=== PATIENT | female | born 1980 | race Caucasian/White ===

== ENCOUNTER 2017-07-29 04:25 | Emergency (ER) | payer MEDICAID, OTHER ==
[2017-07-29 05:23] LABS: APPEARANCE,URINE TURBID; BILIRUBIN,URINE NEGATIVE (NEGATIVE); GLUCOSE, URINE 50 mg/dL (NEGATIVE); KETONES,URINE NEGATIVE (NEGATIVE); LEUKOCYTE ESTERASE,URINE MODERATE (NEGATIVE); NITRITE,URINE NEGATIVE (NEGATIVE); PROTEIN,URINE 100 mg/dL (NEGATIVE); URINE SPECIFIC GRAVITY 1.019; UROBILINOGEN,URINE NEGATIVE mg/dL (<2.0)
[2017-07-29 05:27] LABS: COLOR,URINE RED
[2017-07-29] MEDS ORDERED: CEFTRIAXONE INJ 1000 MG VIAL IV ONE (05:59)
[2017-07-29] MEDS ORDERED: NORMAL SALINE 1000 ML 1,000 ML IV ONE (06:00)
[2017-07-29] MEDS ORDERED: PHENAZOPYRIDINE HCL 200 MG TABLET PO ONE (06:01)
--- NOTE | 2017-07-29 06:01 | ER Document Report ---
ED GI/ - General Chief Complaint: Urinary Problem Stated Complaint: URINARY PAIN Time Seen by Provider: 07/29/17 05:16 Notes: 37-year-old female to the emergency department with chief complaint of severe discomfort with urination. Feels like she is having a baby. Burning. Cannot seem to urinate. Radiating to both flanks. No fever. No other symptoms. Urine looks like it has blood clots in it as well. TRAVEL OUTSIDE OF THE [place] IN LAST 30 DAYS: No - HPI Patient complains to provider of: Dysuria, Flank pain, Hematuria - Related Data Allergies/Adverse Reactions: No Known Allergies Allergy (Unverified 09/30/10 08:14) Past Medical History - General Information source: Patient - Social History Smoking Status: Unknown if Ever Smoked Cigarette use (# per day): No Frequency of alcohol use: None Drug Abuse: None Lives with: Spouse/Significant other Family History: Reviewed & Not Pertinent Patient has suicidal ideation: No Patient has homicidal ideation: No - Past Medical History Cardiac Medical History: Pulmonary Medical History: Neurological Medical History: Renal/ Medical History: Denies: Hx Peritoneal Dialysis GI Medical History: Musculoskeltal Medical History: Infectious Medical History: Past Surgical History: Review of Systems - Review of Systems Constitutional: No symptoms reported EENT: No symptoms reported Cardiovascular: No symptoms reported Respiratory: No symptoms reported Gastrointestinal: No symptoms reported Genitourinary: Burning, Dysuria, Frequency, Flank pain, Hematuria, Pain, Urgency , Retention Female Genitourinary: No symptoms reported Musculoskeletal: No symptoms reported Skin: No symptoms reported Hematologic/Lymphatic: No symptoms reported Neurological/Psychological: No symptoms reported Physical Exam - Vital signs Interpretation: Normal - General General appearance: Appears well, Alert - HEENT Head: Normocephalic, Atraumatic Eyes: Normal Pupils: PERRL - Respiratory Respiratory status: No respiratory distress Chest status: Nontender Breath sounds: Normal Chest palpation: Normal - Cardiovascular Rhythm: Regular Heart sounds: Normal auscultation Murmur: No - Abdominal Inspection: Normal Distension: No distension Bowel sounds: Normal Tenderness: Tender, Other - Mild tenderness suprapubically Organomegaly: No organomegaly - Back Back: Normal, Nontender - Extremities General upper extremity: Normal inspection, Nontender, Normal color, Normal ROM , Normal temperature General lower extremity: Normal inspection, Nontender, Normal color, Normal ROM , Normal temperature, Normal weight bearing. No: Rogelio's sign - Neurological Neuro grossly intact: Yes Cognition: Normal Orientation: AAOx4 [place] Coma Scale Eye Opening: Spontaneous Karmen Coma Scale Verbal: Oriented [place] Coma Scale Motor: Obeys Commands [place] Coma Scale Total: 15 Speech: Normal Motor strength normal: LUE, RUE, LLE, RLE Sensory: Normal Course - Re-evaluation Re-evalutation: 07/29/17 07:56 Patient feeling little bit better but still having some pain. Toradol and fentanyl and antibiotics and IV fluids given. CT scan shows some nonobstructing calculi in the kidneys but no evidence of significant obstruction. At this time more than likely this represents a hemorrhagic cystitis. Will continue with IV antibiotics while here in the ER in [place] with oral antibiotics and pain meds as well as Pyridium. Initial dose of Pyridium given in the ED. - Laboratory Result Diagrams: 07/29/17 06:50 07/29/17 06:50 Laboratory results interpreted by me: 07/29/17 07/29/17 04:38 06:50 RDW 14.1 H Urine Protein 100 H Urine Glucose (UA) 50 H Urine Blood LARGE H Ur Leukocyte Esterase MODERATE H Discharge - Discharge Clinical Impression: Hemorrhagic cystitis Condition: Good Disposition: HOME, SELF-CARE Instructions: Urinary Tract Infection ([facility]) Additional Instructions: It appears that you have an infection of the bladder. Sometimes infections like this can lead to bleeding of the bladder hidalgo. This is called hemorrhagic cystitis. These blood clots can sometimes cause obstructions. In the event that you are unable to void, worsening pain or other symptoms, inability to keep medications down due to nausea, uncontrolled vomiting, severe back pain or other issues please return immediately. Please follow-up with your regular doctor. Take all medications as prescribed. Prescriptions: Hydrocodone/Acetaminophen [[place] 5-325 mg Tablet] 1 tab PO TID PRN 2 Days #6 tablet PRN Reason: For Pain Scale 2-3 Phenazopyridine HCl [Pyridium 100 Mg Tablet] 100 mg PO BID 3 Days #6 tablet Sulfamethoxazole/Trimethoprim [Bactrim Ds Tablet] 1 each PO BID 7 Days #14 tablet Referrals: GISSEL SALINAS [Primary Care Provider] - 07/30/17 8:00 am JODY GANDHI DO [[facility]LLER] - Follow up as needed
[2017-07-29] MEDS ORDERED: KETOROLAC TROMETHAMINE INJ/PF 30 MG/1 ML SDV IV ONE (06:53)
[2017-07-29] MEDS ORDERED: FENTANYL CITRATE INJ/PF 100 MCG/2 ML AMPUL IV PRN (06:53)
[2017-07-29 07:04] LABS: ABSOLUTE EOSINOPHILS # (AUTO) 0.1 10^3/uL (0.0-0.6); ABSOLUTE LYMPHOCYTES (AUTO) 1.4 10^3/uL (0.5-4.7); ABSOLUTE MONOCYTES (AUTO) 0.4 10^3/uL (0.1-1.4); ABSOLUTE NEUT (AUTO) 6.6 10^3/uL (1.7-8.2); BASOPHILS % (AUTO) 0.5 % (0-2); EOSINOPHILS % (AUTO) 0.7 % (0-6); HEMATOCRIT 37.2 % (36.0-47.0); HEMOGLOBIN 12.9 g/dL (12.0-15.5); LYMPHOCYTES % (AUTO) 16.4 % (13-45); MEAN CORPUSCULAR HEMOGLOBIN 29.1 pg (27.0-33.4); MEAN CORPUSCULAR HGB CONC 34.6 g/dL (32.0-36.0); MEAN CORPUSCULAR VOLUME 84 fl (80-97); MONOCYTES % (AUTO) 4.7 % (3-13); PLATELET COUNT 178 10^3/uL (150-450); RED BLOOD COUNT 4.43 10^6/uL (3.72-5.28); RED CELL DISTRIBUTION WIDTH 14.1 % (11.5-14.0); SEGMENTED NEUTROPHILS % (AUTO) 77.7 % (42-78); TOTAL CELLS COUNTED % (AUTO) 100 %; WHITE BLOOD COUNT 8.5 10^3/uL (4.0-10.5)
[2017-07-29 07:27] LABS: ALANINE AMINOTRANSFERASE 25 U/L (9-52); ALKALINE PHOSPHATASE 46 U/L (38-126); ANION GAP 8 (5-19); ASPARTATE AMINO TRANSFERASE 22 U/L (14-36); BILIRUBIN,DIRECT 0.2 mg/dL (0.0-0.4); BILIRUBIN,TOTAL 0.5 mg/dL (0.2-1.3); BLOOD UREA NITROGEN 8 mg/dL (7-20); CALCIUM 9.7 mg/dL (8.4-10.2); CARBON DIOXIDE 30 mmol/L (22-30); CHLORIDE 104 mmol/L (98-107); GLUCOSE 86 mg/dL (75-110); POTASSIUM 4.2 mmol/L (3.6-5.0); TOTAL PROTEIN 6.5 g/dL (6.3-8.2)
--- NOTE | 2017-07-29 07:33 | RADIOLOGY REPORT (SQ) ---
EXAM DESCRIPTION: CT ABDOMEN AND PELVIS WITHOUT CONTRAST CLINICAL HISTORY: Bilateral lower abdominal pain. Hematuria. COMPARISON: None Available. TECHNIQUE: CT of the abdomen and pelvis without IV contrast. Evaluation of the solid organs and vasculature is suboptimal due to lack of IV contrast. DLP: 257.52 mGy-cm FINDINGS: Lung Bases: The visualized lung bases are clear. Bones: No destructive bone lesions identified. Abdomen: Liver: The liver has normal size and density. Gallbladder: No calcified gallstones. Spleen, Pancreas, and Adrenal Glands: The spleen, pancreas, and adrenal glands are unremarkable. Kidneys: Punctate bilateral nonobstructing renal calculi. No hydronephrosis. No obstructing ureteral calculi. Vasculature: The aorta and IVC have normal caliber and position. Stomach: The stomach and duodenum have normal course. Other: No free intraperitoneal air. No free fluid or lymphadenopathy. Pelvis: Bladder: Urinary bladder is unremarkable. Bowel: Possible cecal diverticulum without pericolic fat stranding. Appendix: Normal appendix. Pelvis: Uterus is not enlarged. IMPRESSION: 1. No acute inflammatory or obstructive process identified. 2. Cecal diverticula without evidence of acute diverticulitis. 3. Punctate nonobstructing bilateral renal calculi. This exam was performed according to our departmental dose-optimization program, which includes automated exposure control, adjustment of the mA and/or kV according to patient size and/or use of iterative reconstruction technique.
[2017-07-29] MEDS ORDERED: HYDROCODONE/ACETAMINOPHEN 5-325 MG TABLET PO ONE (09:27)
[2017-07-29 09:38] VITALS: BP 104/49
== END 2017-07-29 09:38 | disposition home or self-care (01) ==
LOC: ER 04:25
DX: N30.91 Cystitis, unspecified with hematuria (principal); R10.9 Unspecified abdominal pain
CPT/HCPCS: 99284; 96375; 96365; 36415; 87086; 85025; 87088; 80053; 81001; 87186; 76380; J3010; J1885; J3490; J0696; J7030

== ENCOUNTER 2017-07-30 15:47 | Emergency (ER) | payer OTHER ==
[2017-07-30] MEDS ORDERED: ONDANSETRON 4 MG TAB.RAPDIS PO ONE (16:26)
[2017-07-30] MEDS ORDERED: DIPHENHYDRAMINE HCL 25 MG CAPSULE PO ONE (16:26)
--- NOTE | 2017-07-30 16:28 | ER Document Report ---
ED Medical Screen (RME) - General Chief Complaint: Headache Stated Complaint: HEADACHE, EYE SWELLING, VOMITING Time Seen by Provider: 07/30/17 16:22 Notes: 37-year-old female patient was seen here yesterday with urinary tract infection , TNTC RBCs and WBCs. Culture preliminary is gram-negative rods. She was started on sulfa antibiotic. She woke up today with nausea vomiting, headache, and her right upper eyelid swollen and red. Also some dizziness. I have greeted and performed a rapid initial assessment of this patient. A comprehensive ED assessment and evaluation of the patient, analysis of test results and completion of the medical decision making process will be conducted by additional ED providers. TRAVEL OUTSIDE OF THE [place] IN LAST 30 DAYS: No - Related Data Allergies/Adverse Reactions: No Known Allergies Allergy (Verified 07/30/17 16:22) Past Medical History - Social History Chew tobacco use (# tins/day): No Frequency of alcohol use: None Drug Abuse: None - Past Medical History Cardiac Medical History: Pulmonary Medical History: Neurological Medical History: Renal/ Medical History: Denies: Hx Peritoneal Dialysis GI Medical History: Musculoskeltal Medical History: Infectious Medical History: Past Surgical History: Physical Exam - Vital signs Vitals: Temp Pulse Resp BP Pulse Ox 98.8 F 93 18 106/68 95 07/30/17 16:00 07/30/17 16:00 07/30/17 16:00 07/30/17 16:00 07/30/17 16:00 Course - Vital Signs Vital signs: Temp Pulse Resp BP Pulse Ox 98.8 F 93 18 106/68 95 07/30/17 16:00 07/30/17 16:00 07/30/17 16:00 07/30/17 16:00 07/30/17 16:00
[2017-07-30 16:49] LABS: APPEARANCE,URINE CLEAR; BILIRUBIN,URINE NEGATIVE (NEGATIVE); GLUCOSE, URINE NEGATIVE (NEGATIVE); KETONES,URINE TRACE mg/dL (NEGATIVE); LEUKOCYTE ESTERASE,URINE NEGATIVE (NEGATIVE); NITRITE,URINE POSITIVE (NEGATIVE); PROTEIN,URINE NEGATIVE (NEGATIVE); URINE SPECIFIC GRAVITY 1.011
[2017-07-30 16:50] LABS: COLOR,URINE DARK YELLOW
[2017-07-30] MEDS ORDERED: METHYLPREDNISOLONE INJ 125 MG/2 ML SDV IV ONE (17:10)
[2017-07-30] MEDS ORDERED: NORMAL SALINE 1000 ML 1,000 ML IV ONE (17:10)
[2017-07-30] MEDS ORDERED: FAMOTIDINE INJ/PF 20 MG/2 ML SDV IV ONE (17:10)
[2017-07-30] MEDS ORDERED: CEFTRIAXONE 1 GM/D5W RTU 1 GM/50 ML RTUPB IV ONE (17:10)
[2017-07-30] MEDS ORDERED: METOCLOPRAMIDE HCL INJ/PF 10 MG/2 ML SDV IV ONE (17:10)
[2017-07-30] MEDS ORDERED: CEFTRIAXONE INJ 1000 MG VIAL ONE (17:16)
[2017-07-30] MEDS ORDERED: CEFTRIAXONE SODIUM 1,000 MG in DEXTROSE 5%-WATER 50 ML IV ONE (18:00)
[2017-07-30] MEDS ORDERED: CEFTRIAXONE INJ 1000 MG VIAL IV ONE (18:00)
--- NOTE | 2017-07-30 18:25 | ER Document Report ---
ED General - General Chief Complaint: Headache Stated Complaint: HEADACHE, EYE SWELLING, VOMITING Time Seen by Provider: 07/30/17 16:22 Mode of Arrival: Ambulatory Information source: Patient Notes: 37-year-old female presents with multiple complaints. Patient notes that she has a history of migraine headaches has been having a migraine for the past 2 days. She also notes that she was recently diagnosed with a UTI, was placed on Bactrim, she notes that in the past she has taken Bactrim and had an allergic reaction to it including swelling of her eyelid. Patient notes she took 1 dose of the Bactrim today and her right eyelid became swollen itchy TRAVEL OUTSIDE OF THE [place] IN LAST 30 DAYS: No - HPI Onset: Just prior to arrival Onset/Duration: Sudden Quality of pain: Achy Severity: Mild Pain Level: 1 Associated symptoms: Headache, Nausea, Vomiting, Other Exacerbated by: Other - bactrim Relieved by: Denies Similar symptoms previously: Yes Recently seen / treated by doctor: Yes - Related Data Allergies/Adverse Reactions: Sulfa (Sulfonamide Antibiotics) Allergy (Verified 07/31/17 12:05) Past Medical History - Social History Smoking Status: Never Smoker Cigarette use (# per day): No Chew tobacco use (# tins/day): No Smoking Education Provided: No Frequency of alcohol use: None Drug Abuse: None Family History: Reviewed & Not Pertinent Patient has suicidal ideation: No Patient has homicidal ideation: No - Past Medical History Cardiac Medical History: Pulmonary Medical History: Neurological Medical History: Reports: Hx Migraine Renal/ Medical History: Denies: Hx Peritoneal Dialysis GI Medical History: Musculoskeltal Medical History: Infectious Medical History: Past Surgical History: Reports: Hx Abdominal Surgery - umbilical hernias x2, Hx Breast Surgery - implant and explant, Hx Orthopedic Surgery - rhinoplasty Review of Systems - Review of Systems Notes: REVIEW OF SYSTEMS: CONSTITUTIONAL : Denies fever, chills, or sweats. Denies recent illness. EENT: Eyelid swelling CARDIOVASCULAR: Denies chest pain. Denies palpitations or racing or irregular heart beat. Denies ankle edema. RESPIRATORY: Denies cough, cold, or chest congestion. Denies shortness of breath, difficulty breathing, or wheezing. GASTROINTESTINAL: Admits to nausea vomiting GENITOURINARY: Admits to burning on urination FEMALE GENITOURINARY: Denies vaginal bleeding, heavy or abnormal periods, irregular periods. Denies vaginal discharge or odor. MUSCULOSKELETAL: Denies back or neck pain or stiffness. Denies joint pain or swelling. SKIN: Denies rash, lesions or sores. HEMATOLOGIC : Denies easy bruising or bleeding. LYMPHATIC: Denies swollen, enlarged glands. NEUROLOGICAL: Admits to headache PSYCHIATRIC: Denies anxiety or stress. Denies depression, suicidal ideation, or homicidal ideation. ALL OTHER SYSTEMS REVIEWED AND NEGATIVE. PHYSICAL EXAMINATION: GENERAL: Well-appearing, well-nourished and in no acute distress. HEAD: Atraumatic, normocephalic. EYES: Pupils equal round and reactive to light, extraocular movements intact, conjunctiva are normal. Right eyelid is edematous slightly erythematous ENT: Nares patent, oropharynx clear without exudates. Moist mucous membranes. NECK: Normal range of motion, supple without lymphadenopathy LUNGS: Breath sounds clear to auscultation bilaterally and equal. No wheezes rales or rhonchi. HEART: Regular rate and rhythm without murmurs ABDOMEN: Soft, nontender, nondistended abdomen. No guarding, no rebound. No masses appreciated. Female : deferred Musculoskeletal: Normal range of motion, no pitting or edema. No cyanosis. NEUROLOGICAL: Cranial nerves grossly intact. Normal speech, normal gait. Normal sensory, motor exams PSYCH: Normal mood, normal affect. SKIN: Warm, Dry, normal turgor, no rashes or lesions noted. Dictation was performed using [employer] voice recognition software Physical Exam - Vital signs Vitals: Temp Pulse Resp BP Pulse Ox 98.8 F 93 18 106/68 95 07/30/17 16:00 07/30/17 16:00 07/30/17 16:00 07/30/17 16:07/30/17 16:00 Course - Re-evaluation Re-evalutation: 07/31/17 12:06 Patient's migraine headache is chronic in nature, she states this is similar to all her previous migraines. This was treated with IV fluids as well as medications the patient slept and her headache resolved completely, I do not believe she requires a lumbar puncture CT imaging as her symptoms resolved and are similar to all her previous, her urine actually looks much better, I however did stop her Bactrim to treat her allergic reaction and will switch her to Keflex. Otherwise the patient looks well is in no distress she feels much better and wishes to be discharged home After performing a Medical Screening Examination, I estimate there is LOW risk for AIRWAY COMPROMISE, ANAPHYLAXIS, CELLULITIS, EPIGLOTTIS, or NECROTIZING FASCIITIS, thus I consider the discharge disposition reasonable. Also, there is no evidence or peritonitis, sepsis, or toxicity. I have reevaluated this patient multiple times and no significant life threatening changes are noted. The patient and I have discussed the diagnosis and risks, and we agree with discharging home with close follow-up with the understanding that symptoms and presentations can change. We also discussed returning to the Emergency Department immediately if new or worsening symptoms occur. We have discussed the symptoms which are most concerning (e.g., difficulty breathing or swallowing , fever, changing or worsening pain) that necessitate immediate return. - Vital Signs Vital signs: Temp Pulse Resp BP Pulse Ox 98.0 F 73 18 122/84 100 07/30/17 19:07 07/30/17 19:07 07/30/17 19:07 07/30/17 19:07 07/30/17 19:07 - Laboratory Laboratory results interpreted by me: 07/30/17 16:30 Urine Ketones TRACE H Urine Nitrite POSITIVE H Urine Urobilinogen 2.0 H Discharge - Discharge Clinical Impression: Migraine Qualifiers: Migraine type: unspecified Status migrainosus presence: without status migrainosus Intractability: not intractable Qualified Code(s): G43.909 - Migraine, unspecified, not intractable, without status migrainosus Allergic reaction Qualifiers: Encounter type: initial encounter Qualified Code(s): T78.40XA - Allergy, unspecified, initial encounter UTI (urinary tract infection) Qualifiers: Urinary tract infection type: acute cystitis Hematuria presence: without hematuria Qualified Code(s): N30.00 - Acute cystitis without hematuria Condition: Stable Disposition: HOME, SELF-CARE Instructions: Urinary Tract Infection ([facility]) Additional Instructions: Follow up with your physician tomorrow for further care or return to the ED IMMEDIATELY if symptoms worsen or new concerns occur. If you cannot afford to follow up with your primary care physician a list of low cost clinics have been provided at the end of your discharge papers as well. Prescriptions: Cephalexin Monohydrate [Keflex 500 mg Capsule] 500 mg PO BID #20 capsule Diphenhydramine HCl [Benadryl 50 mg Capsule] 1 cap PO Q6 PRN #20 capsule PRN Reason: Famotidine [Pepcid 20 mg Tablet] 20 mg PO DAILY #5 tablet Prednisone [Deltasone 20 mg Tablet] 3 tab PO DAILY 5 Days tablet Prednisone 60 mg PO DAILY 4 Days tablet Promethazine HCl [Phenergan 25 mg Tablet] 1 - 2 tab PO Q6H PRN #15 tablet PRN Reason:
[2017-07-30 19:09] VITALS: BP 122/84
== END 2017-07-30 19:10 | disposition home or self-care (01) ==
LOC: ER 15:47
DX: G43.909 Migraine, unspecified, not intractable, without status migrainosus (principal); N30.00 Acute cystitis without hematuria; T37.0X5A Adverse effect of sulfonamides, initial encounter; H02.843 Edema of right eye, unspecified eyelid; R11.2 Nausea with vomiting, unspecified; Z88.2 Allergy status to sulfonamides
CPT/HCPCS: 99283; 96361; 96375; 96365; 87040; 81001; S0119; J2930; J2765; J0696; J7030; S0028

== ENCOUNTER 2018-02-08 13:43 | Inpatient (IN) | payer OTHER ==
--- NOTE | 2018-02-08 14:06 | ER Document Report ---
ED General - General Chief Complaint: Overdose Stated Complaint: POSSIBLE OVERDOSE Time Seen by Provider: 02/08/18 13:55 Notes: This is a 37-year-old female brought in by EMS for possible overdose. Patient was reportedly slurring her speech. Possible relationship issue. Was at a hotel room. Near empty bottle of Xanax which had a prior refill date less than a month ago with 90 Xanax and currently only has 12 left. Patient is very difficult to arouse and slurring her speech. No signs of trauma. TRAVEL OUTSIDE OF THE [place] IN LAST 30 DAYS: No - HPI Onset: Just prior to arrival - Related Data Allergies/Adverse Reactions: Sulfa (Sulfonamide Antibiotics) Allergy (Verified 02/08/18 14:10) Past Medical History - General Information source: Patient, [facility] Records Cannot obtain history due to: Altered mental status - Social History Smoking Status: Unknown if Ever Smoked Frequency of alcohol use: unknown Lives with: Other - unknown Family History: Reviewed & Not Pertinent - Past Medical History Cardiac Medical History: Pulmonary Medical History: Neurological Medical History: Reports: Hx Migraine Renal/ Medical History: Denies: Hx Peritoneal Dialysis GI Medical History: Musculoskeletal Medical History: Infectious Medical History: Past Surgical History: Reports: Hx Abdominal Surgery - umbilical hernias x2, Hx Breast Surgery - implant and explant, Hx Orthopedic Surgery - rhinoplasty Review of Systems - Review of Systems -: Yes ROS unobtainable due to patient's medical condition - Altered and difficult to arouse Physical Exam - Vital signs Vitals: Pulse Ox 98 02/08/18 13:47 Interpretation: Normal - General General appearance: Lethargic In distress: None - HEENT Head: Normocephalic, Atraumatic Eyes: Normal Pupils: PERRL Mucous membranes: Dry Pharynx: Normal Neck: Normal - Respiratory Respiratory status: No respiratory distress Chest status: Nontender Breath sounds: Normal Chest palpation: Normal - Cardiovascular Rhythm: Regular Heart sounds: Normal auscultation Murmur: No - Abdominal Inspection: Normal Distension: No distension Bowel sounds: Normal Tenderness: Nontender Organomegaly: No organomegaly - Back Back: Normal, Nontender - Extremities General upper extremity: Normal inspection, Nontender, Normal color, Normal ROM , Normal temperature General lower extremity: Normal inspection, Nontender, Normal color, Normal ROM , Normal temperature, Normal weight bearing. 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 There is a significant amount of pills in the prescription and only 12 pills left in the bottle. Patient will need prolonged observation and due to the concern for respiratory depression and [employer] depression will place in the ICU for observation. Patient will need to be evaluated by mental health after she has cleared because it cannot be discerned at this time whether this was an intentional versus accidental overdose. 02/08/18 15:44 Laboratory 02/08/18 02/08/18 02/08/18 14:05 14:05 14:05 WBC 3.5 L RBC 3.80 Hgb 11.1 L Hct 32.9 L MCV 87 MCH 29.3 MCHC 33.8 RDW 13.8 Plt Count 141 L Seg Neutrophils % 62.4 Lymphocytes % 29.2 Monocytes % 5.4 Eosinophils % 2.3 Basophils % 0.7 Absolute Neutrophils 2.2 Absolute Lymphocytes 1.0 Absolute Monocytes 0.2 Absolute Eosinophils 0.1 Absolute Basophils 0.0 Sodium 144.3 Potassium 3.5 L Chloride 112 H Carbon Dioxide 24 Anion Gap 8 BUN 10 Creatinine 0.91 Est GFR ( Amer) > 60 Est GFR (Non-Af Amer) > 60 Glucose 83 Calcium 8.7 Total Bilirubin 0.5 Direct Bilirubin 0.3 Neonat Total Bilirubin Not Reportable Neonat Direct Bilirubin Not Reportable Neonat Indirect Bili Not Reportable AST 15 ALT 11 Alkaline Phosphatase 45 Total Protein 5.6 L Albumin 3.2 L Serum HCG, Qual NEGATIVE Urine Color Urine Appearance Urine pH Ur Specific [place] Urine Protein Urine Glucose (UA) Urine Ketones Urine Blood Urine Nitrite Urine Bilirubin Urine Urobilinogen Ur Leukocyte Esterase Urine WBC (Auto) Urine RBC (Auto) U Hyaline Cast (Auto) Squamous Epi Cells Auto Urine Mucus (Auto) Urine Ascorbic Acid Salicylates < 1.0 L Urine Opiates Screen Urine Methadone Screen Acetaminophen < 10 L Ur Barbiturates Screen Ur Phencyclidine Scrn Ur Amphetamines Screen U Benzodiazepines Scrn Urine Cocaine Screen U Marijuana (THC) Screen Serum Alcohol < 10 02/08/18 02/08/18 14:18 14:18 WBC RBC Hgb Hct MCV MCH MCHC RDW Plt Count Seg Neutrophils % Lymphocytes % Monocytes % Eosinophils % Basophils % Absolute Neutrophils Absolute Lymphocytes Absolute Monocytes Absolute Eosinophils Absolute Basophils Sodium Potassium Chloride Carbon Dioxide Anion Gap BUN Creatinine Est GFR ( Amer) Est GFR (Non-Af Amer) Glucose Calcium Total Bilirubin Direct Bilirubin Neonat Total Bilirubin Neonat Direct Bilirubin Neonat Indirect Bili AST ALT Alkaline Phosphatase Total Protein Albumin Serum HCG, Qual Urine Color YELLOW Urine Appearance SLIGHTLY-CLOUDY Urine pH 5.0 Ur Specific [place] 1.009 Urine Protein NEGATIVE Urine Glucose (UA) NEGATIVE Urine Ketones NEGATIVE Urine Blood NEGATIVE Urine Nitrite NEGATIVE Urine Bilirubin NEGATIVE Urine Urobilinogen NEGATIVE Ur Leukocyte Esterase NEGATIVE Urine WBC (Auto) 4 Urine RBC (Auto) 3 U Hyaline Cast (Auto) 1 Squamous Epi Cells Auto 8 Urine Mucus (Auto) RARE Urine Ascorbic Acid NEGATIVE Salicylates Urine Opiates Screen NEGATIVE Urine Methadone Screen NEGATIVE Acetaminophen Ur Barbiturates Screen NEGATIVE Ur Phencyclidine Scrn NEGATIVE Ur Amphetamines Screen NEGATIVE U Benzodiazepines Scrn UNCONFIRMED POSITIVE Urine Cocaine Screen NEGATIVE U Marijuana (THC) Screen NEGATIVE Serum Alcohol - Vital Signs Vital signs: Temp Pulse Resp BP Pulse Ox 97.7 F 98 02/08/18 14:10 02/08/18 13:47 - Laboratory Result Diagrams: 02/08/18 14:05 02/08/18 14:05 Laboratory results interpreted by me: 02/08/18 02/08/18 14:05 14:05 WBC 3.5 L Hgb 11.1 L Hct 32.9 L Plt Count 141 L Potassium 3.5 L Chloride 112 H Total Protein 5.6 L Albumin 3.2 L Salicylates < 1.0 L Acetaminophen < 10 L - EKG Interpretation by Me EKG shows normal: Sinus rhythm, [place], Intervals, QRS Complexes, ST-T Waves Critical Care Note - Critical Care Note Total time excluding time spent on procedures (mins): 35 Comments: Altered mental status, overdose Discharge - Discharge Clinical Impression: Benzodiazepine overdose of undetermined intent Qualifiers: Encounter type: initial encounter Qualified Code(s): T42.4X4A - Poisoning by benzodiazepines, undetermined, initial encounter Condition: Good Disposition: ADMITTED INPATIENT Admitting Provider: [facility] Unit Admitted: ICU
[2018-02-08 14:17] LABS: ABSOLUTE EOSINOPHILS # (AUTO) 0.1 10^3/uL (0.0-0.6); ABSOLUTE MONOCYTES (AUTO) 0.2 10^3/uL (0.1-1.4); ABSOLUTE NEUT (AUTO) 2.2 10^3/uL (1.7-8.2); BASOPHILS % (AUTO) 0.7 % (0-2); EOSINOPHILS % (AUTO) 2.3 % (0-6); HEMATOCRIT 32.9 % (36.0-47.0); HEMOGLOBIN 11.1 g/dL (12.0-15.5); LYMPHOCYTES % (AUTO) 29.2 % (13-45); MEAN CORPUSCULAR HEMOGLOBIN 29.3 pg (27.0-33.4); MEAN CORPUSCULAR HGB CONC 33.8 g/dL (32.0-36.0); MEAN CORPUSCULAR VOLUME 87 fl (80-97); MONOCYTES % (AUTO) 5.4 % (3-13); PLATELET COUNT 141 10^3/uL (150-450); RED CELL DISTRIBUTION WIDTH 13.8 % (11.5-14.0); SEGMENTED NEUTROPHILS % (AUTO) 62.4 % (42-78); TOTAL CELLS COUNTED % (AUTO) 100 %; WHITE BLOOD COUNT 3.5 10^3/uL (4.0-10.5)
[2018-02-08 14:36] LABS: APPEARANCE,URINE SLIGHTLY-CLOUDY; BILIRUBIN,URINE NEGATIVE (NEGATIVE); COLOR,URINE YELLOW; GLUCOSE, URINE NEGATIVE (NEGATIVE); KETONES,URINE NEGATIVE (NEGATIVE); LEUKOCYTE ESTERASE,URINE NEGATIVE (NEGATIVE); NITRITE,URINE NEGATIVE (NEGATIVE); PROTEIN,URINE NEGATIVE (NEGATIVE); URINE SPECIFIC GRAVITY 1.009; UROBILINOGEN,URINE NEGATIVE mg/dL (<2.0)
[2018-02-08 14:42] LABS: ALANINE AMINOTRANSFERASE 11 U/L (9-52); ALBUMIN 3.2 g/dL (3.5-5.0); ALKALINE PHOSPHATASE 45 U/L (38-126); ANION GAP 8 (5-19); ASPARTATE AMINO TRANSFERASE 15 U/L (14-36); BILIRUBIN,DIRECT 0.3 mg/dL (0.0-0.4); BILIRUBIN,TOTAL 0.5 mg/dL (0.2-1.3); BLOOD UREA NITROGEN 10 mg/dL (7-20); CALCIUM 8.7 mg/dL (8.4-10.2); CARBON DIOXIDE 24 mmol/L (22-30); CHLORIDE 112 mmol/L (98-107); GLUCOSE 83 mg/dL (75-110); POTASSIUM 3.5 mmol/L (3.6-5.0); SODIUM 144.3 mmol/L (137-145); TOTAL PROTEIN 5.6 g/dL (6.3-8.2)
[2018-02-08 14:44] LABS: ACETAMINOPHEN < 10 ug/mL (10-30); ALCOHOL < 10 mg/dL (NONE DETECTED); SALICYLATE < 1.0 mg/dL (2.0-20.0)
[2018-02-08 14:56] LABS: URINE AMPHETAMINES SCREEN NEGATIVE; URINE BARBITURATES SCREEN NEGATIVE; URINE BENZODIAZEPINES SCREEN UNCONFIRMED POSITIVE; URINE COCAINE SCREEN NEGATIVE; URINE MARIJUANA (THC) SCREEN NEGATIVE; URINE METHADONE SCREEN NEGATIVE; URINE PHENCYCLIDINE SCREEN NEGATIVE
--- NOTE | 2018-02-08 16:41 | PSYCHOLOGICAL NOTE ---
Psych Note - Psych Note Date seen by psych provider: 02/08/18 Time seen by psych provider: 15:30 Psych Note: Reason for consult: Possible overdose This is a 37-year-old female brought in by EMS for possible overdose. Patient was reportedly slurring her speech. Possible relationship issue. Clinician attempted evaluation. Patient has difficulty opening her eyes had to be repeatedly awoken. Patient's conversational speech is very difficult to understand most is mumbling and incoherent. Currently cognitive processes are impaired due to being under the influence. Patient's home medication are xanax 1mg three times a day, Topmax 100mg twice a day, and Wellbutrin 150mg daily. no medication recommendations at this time 300.00 (F41.9) unspecified anxiety per history Impression\plan: Patient is recommended for IVC petition for overnight mental health observation. Patient was unable to effectively engage in evaluation. She continues to fall asleep and is mumbling and difficult to understand. Evaluation will occur once no longer under the influence. Dr. Ngo was consulted and the care management this patient; attending physicians in agreement with recommendations and disposition.
[2018-02-08] MEDS ORDERED: ONDANSETRON HCL INJ/PF 4 MG/2 ML SDV IV PRN (16:44)
[2018-02-08] MEDS ORDERED: MAGNESIUM HYDROXIDE SUSP 30 ML UDCUP PO PRN (16:44)
[2018-02-08] MEDS ORDERED: ACETAMINOPHEN 325 MG TABLET PO PRN (16:54)
[2018-02-08] MEDS ORDERED: ACETAMINOPHEN 650 MG SUPP.RECT PR PRN (16:54)
[2018-02-08] MEDS: DOCUSATE SODIUM 100 MG CAPSULE PO SCH (18:28)
--- NOTE | 2018-02-08 20:13 | PDOC H&P ---
History of Present Illness Admission Date/PCP: 02/08/18 16:48 Patient complains of: Acute benzodiazepine overdose History of Present Illness: AIDAN AQUINO is a 37 year old female Past Medical History Cardiac Medical History: Denies: Coronary Artery Disease, DVT, Hyperlipidema, Hypertension, Pulmonary Embolism Pulmonary Medical History: Denies: Asthma, Chronic Obstructive Pulmonary Disease (COPD) EENT Medical History: Reports: None Neurological Medical History: Reports: Migraine Denies: Seizures Endocrine Medical History: Denies: Diabetes Mellitus Type 1, Diabetes Mellitus Type 2 Renal/ Medical History: Denies: Chronic Kidney Disease, Nephrolithiasis Malignancy Medical History: Reports: None GI Medical History: Denies: Crohn's Disease, Peptic Ulcer Disease, Ulcerative Colitis Musculoskeltal Medical History: Denies: Arthritis, Gout Skin Medical History: Denies: Eczema, Psoriasis Psychiatric Medical History: Reports: Depression, General Anxiety Disorder Denies: Alcohol Dependency, Bipolar Disorder, Substance Abuse, Tobacco Dependency Traumatic Medical History: Reports: None Hematology: Denies: Anemia, Bleeding Tendencies Infectious Medical History: Reports: None Past Surgical History Past Surgical History: Reports: Other - rhinoplasty Social History Information Source: Patient Lives with: Family Smoking Status: Never Smoker Frequency of Alcohol Use: Occasional Hx Recreational Drug Use: No Hx Prescription Drug Abuse: Yes - Advance Directive Resuscitation Status: Full Code Surrogate healthcare decision maker:: Family History Family History: CAD, Hypertension, Other - Anxiety and depression. denies: COPD , DM, Malignancy Parental Family History Reviewed: Yes Children Family History Reviewed: No Sibling(s) Family History Reviewed.: Yes Medication/Allergy Home Medications: Alprazolam [Xanax] 1 mg PO TID 02/08/18 Bupropion HCl [Wellbutrin Xl 150 mg 24hr Tablet] 150 mg PO DAILY 02/08/18 Nitrofurantoin Macrocrystal [Macrodantin] 100 mg PO DAILYP PRN 02/08/18 Topiramate [Topamax 100 mg Tablet] 100 mg PO BID 02/08/18 Allergies/Adverse Reactions: Sulfa (Sulfonamide Antibiotics) Allergy (Verified 02/08/18 14:10) Review of Systems Constitutional: ABSENT: chills, fever(s) Eyes: ABSENT: visual disturbances, other - Ocular pain Ears: ABSENT: hearing changes, other - Ear pain Nose, Mouth, and Throat: ABSENT: mouth pain, sore throat Cardiovascular: ABSENT: chest pain, dyspnea on exertion, palpitations Respiratory: ABSENT: cough, dyspnea Gastrointestinal: ABSENT: abdominal pain, diarrhea, nausea, vomiting Genitourinary: ABSENT: dysuria, hematuria Musculoskeletal: ABSENT: back pain, joint swelling Integumentary: ABSENT: pruritus, rash Neurological: ABSENT: confusion, convulsions, memory loss, tremor(s) Psychiatric: PRESENT: anxiety, depression. ABSENT: hallucinations, homidical ideation, suicidal ideation - Patient states she was not trying to kill herself she was just trying to get some sleep but she is unaware of the number of tablets she may have taken from her bottle of Xanax. Endocrine: ABSENT: cold intolerance, heat intolerance Hematologic/Lymphatic: ABSENT: easy bleeding, easy bruising Allergic/Immunologic: ABSENT: seasonal rhinorrhea, other - Insect bite allergy Physical Exam Vital Signs: Temp Pulse Resp BP Pulse Ox 97.7 F 72 15 108/66 100 02/08/18 19:32 02/08/18 18:20 02/08/18 18:20 02/08/18 18:20 02/08/18 18:20 Intake & Output 02/06/18 02/07/18 02/08/18 23:59 23:59 23:59 Output Total 0 Balance 0 Weight 48 kg General appearance: PRESENT: no acute distress, cooperative, well-developed, well-nourished Head exam: PRESENT: atraumatic, normocephalic Eye exam: PRESENT: conjunctiva pink, EOMI. ABSENT: conjunctival injection, nystagmus, periorbital swelling, scleral icterus Ear exam: PRESENT: normal external ear exam. ABSENT: bleeding, drainage Mouth exam: PRESENT: neck supple, tongue midline Neck exam: ABSENT: thyromegaly, tracheal deviation Respiratory exam: PRESENT: clear to auscultation zhou, symmetrical, unlabored Cardiovascular exam: PRESENT: RRR. ABSENT: clicks, gallop, rubs Pulses: PRESENT: normal radial pulses, normal dorsalis pedis pul Vascular exam: PRESENT: normal capillary refill. ABSENT: pallor GI/Abdominal exam: PRESENT: normal bowel sounds, soft. ABSENT: tenderness Rectal exam: PRESENT: deferred Extremities exam: ABSENT: joint swelling, pedal edema Musculoskeletal exam: PRESENT: full ROM, normal inspection Neurological exam: PRESENT: altered - Arouses well to stimulation, but is very drowsy, oriented to person, oriented to place, oriented to time, oriented to situation Psychiatric exam: PRESENT: normal mood, unusual affect - Subdued affect Skin exam: ABSENT: jaundice, rash, urticaria Assessment & Plan - Diagnosis (1) Benzodiazepine overdose of undetermined intent Qualifiers: Encounter type: initial encounter Qualified Code(s): T42.4X4A - Poisoning by benzodiazepines, undetermined, initial encounter Is this a current diagnosis for this admission?: Yes Plan: Patient is admitted to the ICU for supportive and symptomatic cares. As she becomes more alert she will be restarted on her antidepressant and mood control medications. She will be evaluated on an ongoing basis by the psychiatric service with disposition planning per their recommendations. (2) Dysthymic disorder Is this a current diagnosis for this admission?: Yes Plan: Patient states that she has been taking medication for her depression and anxiety for more than 12 years. She will be restarted on her Wellbutrin and topiramate as soon as she is more alert and aware of her surroundings. She will be reevaluated by psychiatry services for her suicide potential and recommended disposition. (3) Generalized anxiety disorder Is this a current diagnosis for this admission?: Yes Plan: At the present time the patient's generalized anxiety disorder will no longer be addressed with Xanax. I would consider recommendations from psychiatry for ongoing therapy although at this point I would be highly reticent to resuming any type of benzodiazepine or other drug of potential abuse. - Time Time Spent: 50 to 70 Minutes - Inpatient Certification Based on my medical assessment, after consideration of the patient's comorbidities, presenting symptoms, or acuity I expect that the services needed warrant INPATIENT care.: Yes I certify that my determination is in accordance with my understanding of Medicare's requirements for reasonable and necessary INPATIENT services [42 CFR 412.3e].: Yes Medical Necessity: Need Close Monitoring Due to Risk of Patient Decompensation
[2018-02-08] MEDS: POTASSI CL 20 MEQ/D5-1/2NS 1L 1,000 ML IV PRN (20:14)
[2018-02-08] MEDS: TOPIRAMATE 100 MG TABLET PO SCH (21:06)
[2018-02-08] MEDS: BUPROPION HCL 75 MG TABLET PO SCH (21:06)
[2018-02-08] MEDS: PANTOPRAZOLE SODIUM 40 MG VIAL IV SCH (21:06)
[2018-02-09] MEDS: POTASSI CL 20 MEQ/D5-1/2NS 1L 1,000 ML IV PRN ×2 (02:34→09:41)
[2018-02-09 06:33] LABS: ABSOLUTE EOSINOPHILS # (AUTO) 0.1 10^3/uL (0.0-0.6); ABSOLUTE LYMPHOCYTES (AUTO) 1.8 10^3/uL (0.5-4.7); ABSOLUTE MONOCYTES (AUTO) 0.5 10^3/uL (0.1-1.4); ABSOLUTE NEUT (AUTO) 2.8 10^3/uL (1.7-8.2); BASOPHILS % (AUTO) 0.5 % (0-2); HEMOGLOBIN 10.3 g/dL (12.0-15.5); LYMPHOCYTES % (AUTO) 33.7 % (13-45); MEAN CORPUSCULAR HEMOGLOBIN 28.7 pg (27.0-33.4); MEAN CORPUSCULAR HGB CONC 33.2 g/dL (32.0-36.0); MEAN CORPUSCULAR VOLUME 86 fl (80-97); MONOCYTES % (AUTO) 9.7 % (3-13); PLATELET COUNT 147 10^3/uL (150-450); RED BLOOD COUNT 3.58 10^6/uL (3.72-5.28); RED CELL DISTRIBUTION WIDTH 13.6 % (11.5-14.0); SEGMENTED NEUTROPHILS % (AUTO) 54.1 % (42-78); TOTAL CELLS COUNTED % (AUTO) 100 %; WHITE BLOOD COUNT 5.2 10^3/uL (4.0-10.5)
[2018-02-09 06:38] LABS: ANION GAP 8 (5-19); BLOOD UREA NITROGEN 10 mg/dL (7-20); CALCIUM 8.7 mg/dL (8.4-10.2); CARBON DIOXIDE 26 mmol/L (22-30); CHLORIDE 111 mmol/L (98-107); FREE T3 3.2 pg/mL (2.77-5.27); FREE T4 (FREE THYROXINE) 0.96 ng/dL (0.78-2.19); GLUCOSE 85 mg/dL (75-110); POTASSIUM 3.6 mmol/L (3.6-5.0); SODIUM 145.4 mmol/L (137-145); THYROID STIMULATING HORMONE 1.86 uIU/mL (0.47-4.68)
--- NOTE | 2018-02-09 07:13 | EKG REPORT ---
SEVERITY:- BORDERLINE ECG - SINUS RHYTHM BORDERLINE T ABNORMALITIES, DIFFUSE LEADS : Confirmed by: Magnolia Gonzalez 09-Feb-2018 07:12:30
[2018-02-09] MEDS: TOPIRAMATE 100 MG TABLET PO SCH (09:43)
[2018-02-09] MEDS: BUPROPION HCL 75 MG TABLET PO SCH ×2 (09:43→17:45)
[2018-02-09] MEDS: PANTOPRAZOLE SODIUM 40 MG VIAL IV SCH (09:44)
[2018-02-09] MEDS: DOCUSATE SODIUM 100 MG CAPSULE PO SCH ×2 (09:50→17:06)
[2018-02-09] MEDS ORDERED: ENOXAPARIN SODIUM INJ 40 MG/0.4 ML DISP.SYRIN SUBCUT SCH (10:00)
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
[2018-02-09] MEDS ORDERED: CLONAZEPAM 1 MG TABLET PO PRN (16:04)
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
[2018-02-09 19:24] VITALS: BP 115/84
== END 2018-02-09 19:50 | DRG 918 ==
LOC: ER 13:43 → EH 16:48 → ICU 18:19
PROVIDERS: ADMIT Emergency Medicine; ATTEND Emergency Medicine
DX: T42.4X2A Poisoning by benzodiazepines, intentional self-harm, initial encounter (principal); F34.1 Dysthymic disorder; F41.1 Generalized anxiety disorder; Y92.59 Other trade areas as the place of occurrence of the external cause; R47.81 Slurred speech; G43.909 Migraine, unspecified, not intractable, without status migrainosus; F43.12 Post-traumatic stress disorder, chronic; Z79.899 Other long term (current) drug therapy; Z88.2 Allergy status to sulfonamides; Z82.49 Family history of ischemic heart disease and other diseases of the circulatory system; Z81.8 Family history of other mental and behavioral disorders
CPT/HCPCS: 36415; 80048; 80053; 80307; 81001; 83735; 84439; 84443; 84481; 84703; 85025; 93005; 93010; 99291; J3480; J3490; S0164

== ENCOUNTER 2018-06-06 19:03 | Emergency (ER) | payer OTHER ==
[2018-06-06] MEDS ORDERED: ONDANSETRON 4 MG TAB.RAPDIS PO ONE (20:15)
[2018-06-06] MEDS ORDERED: MORPHINE SULFATE 10 MG/ML INJ IM ONE (20:16)
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
--- NOTE | 2018-06-06 20:47 | RADIOLOGY REPORT (SQ) ---
EXAM DESCRIPTION: XR RIBS UNILATERAL WITH CHEST COMPLETED DATE/TME: 06/06/2018 20:15 CLINICAL HISTORY: 37 years, Female, pain Findings: Heart is not enlarged. Lungs are clear. No pneumothorax. No pleural effusions. There is a minimally displaced fracture of the right anterolateral 10th rib noted. No pneumothorax. IMPRESSION: Right anterolateral 10th rib fracture.
--- NOTE | 2018-06-06 21:23 | RADIOLOGY REPORT (SQ) ---
EXAM DESCRIPTION: US ABDOMEN LIMITED COMPLETED DATE/TME: 06/06/2018 20:15 CLINICAL HISTORY: 37 years, Female, pain COMPARISON: None. TECHNIQUE: LIMITATIONS: None. FINDINGS: No gallstones. The histologist technologist reported a negative sonographic Kendall sign. There are no focal lesions within the liver. No evidence of biliary tree dilatation. The pancreas and right kidney are unremarkable. The abdominal aorta is normal in caliber. IMPRESSION: No sonographic abnormality. copyright 2010 [employer]- All Rights Reserved
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
[2018-06-06] MEDS ORDERED: ONDANSETRON ODT 4 MG TAB (6 TAB/ER DISP) PO PRN (22:37)
[2018-06-06] MEDS ORDERED: OXYCODONE HCL IR 5 MG TABLET PO ONE (23:26)
== END 2018-06-06 23:50 | disposition home or self-care (01) ==
LOC: ER 19:03
DX: S22.31XA Fracture of one rib, right side, initial encounter for closed fracture (principal); X58.XXXA Exposure to other specified factors, initial encounter; R11.2 Nausea with vomiting, unspecified; F17.200 Nicotine dependence, unspecified, uncomplicated; Z88.2 Allergy status to sulfonamides
CPT/HCPCS: 99284; 96372; 71101; 76705; S0119; J2270

== ENCOUNTER 2019-01-22 02:30 | Emergency (ER) | payer OTHER ==
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
[2019-01-22 03:43] LABS: URINE AMPHETAMINES SCREEN NEGATIVE; URINE BARBITURATES SCREEN NEGATIVE; URINE BENZODIAZEPINES SCREEN NEGATIVE; URINE COCAINE SCREEN NEGATIVE; URINE MARIJUANA (THC) SCREEN UNCONFIRMED POSITIVE; URINE METHADONE SCREEN NEGATIVE; URINE PHENCYCLIDINE SCREEN NEGATIVE
[2019-01-22 13:12] VITALS: BP 110/70
== END 2019-01-22 13:21 | disposition home or self-care (01) ==
LOC: ER 02:30
DX: F10.10 Alcohol abuse, uncomplicated (principal); Z88.2 Allergy status to sulfonamides
CPT/HCPCS: 36415; 80307; 99284

== ENCOUNTER 2019-04-30 05:26 | Emergency (ER) | payer BC, OTHER ==
[2019-04-30 06:41] LABS: ABSOLUTE LYMPHOCYTES (AUTO) 2.2 10^3/uL (0.5-4.7); ABSOLUTE MONOCYTES (AUTO) 0.4 10^3/uL (0.1-1.4); ABSOLUTE NEUT (AUTO) 6.4 10^3/uL (1.7-8.2); BASOPHILS % (AUTO) 0.5 % (0-2); EOSINOPHILS % (AUTO) 0.5 % (0-6); HEMATOCRIT 36.9 % (36.0-47.0); HEMOGLOBIN 12.5 g/dL (12.0-15.5); MEAN CORPUSCULAR HEMOGLOBIN 28.4 pg (27.0-33.4); MEAN CORPUSCULAR HGB CONC 33.8 g/dL (32.0-36.0); MEAN CORPUSCULAR VOLUME 84 fl (80-97); MONOCYTES % (AUTO) 4.8 % (3-13); PLATELET COUNT 315 10^3/uL (150-450); RED BLOOD COUNT 4.39 10^6/uL (3.72-5.28); RED CELL DISTRIBUTION WIDTH 14.7 % (11.5-14.0); SEGMENTED NEUTROPHILS % (AUTO) 70.2 % (42-78); TOTAL CELLS COUNTED % (AUTO) 100 %; WHITE BLOOD COUNT 9.2 10^3/uL (4.0-10.5)
[2019-04-30 06:43] LABS: APPEARANCE,URINE SLIGHTLY-CLOUDY; BILIRUBIN,URINE NEGATIVE (NEGATIVE); COLOR,URINE YELLOW; GLUCOSE, URINE NEGATIVE (NEGATIVE); KETONES,URINE TRACE mg/dL (NEGATIVE); LEUKOCYTE ESTERASE,URINE NEGATIVE (NEGATIVE); NITRITE,URINE NEGATIVE (NEGATIVE); PROTEIN,URINE 30 mg/dL (NEGATIVE); URINE SPECIFIC GRAVITY 1.023; UROBILINOGEN,URINE NEGATIVE mg/dL (<2.0)
[2019-04-30 07:03] LABS: ALBUMIN 4.5 g/dL (3.5-5.0); ALCOHOL 136 mg/dL (NONE DETECTED); ALKALINE PHOSPHATASE 51 U/L (38-126); ANION GAP 12 (5-19); ASPARTATE AMINO TRANSFERASE 26 U/L (14-36); BILIRUBIN,DIRECT 0.3 mg/dL (0.0-0.4); BILIRUBIN,TOTAL 0.3 mg/dL (0.2-1.3); BLOOD UREA NITROGEN 16 mg/dL (7-20); CALCIUM 9.1 mg/dL (8.4-10.2); CARBON DIOXIDE 23 mmol/L (22-30); CHLORIDE 109 mmol/L (98-107); GLUCOSE 89 mg/dL (75-110); POTASSIUM 3.9 mmol/L (3.6-5.0); TOTAL PROTEIN 7.7 g/dL (6.3-8.2)
[2019-04-30 07:59] LABS: ACETAMINOPHEN < 10 ug/mL (10-30); SALICYLATE < 1.0 mg/dL (2.0-20.0)
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
[2019-04-30] MEDS ORDERED: OXYCODONE-ACETAMINOPHEN 5-325 MG TABLET PO ONE (10:33)
[2019-04-30] MEDS ORDERED: ONDANSETRON 4 MG TAB.RAPDIS PO ONE (10:42)
[2019-04-30 11:09] LABS: URINE AMPHETAMINES SCREEN NEGATIVE; URINE BARBITURATES SCREEN NEGATIVE; URINE BENZODIAZEPINES SCREEN NEGATIVE; URINE COCAINE SCREEN NEGATIVE; URINE MARIJUANA (THC) SCREEN NEGATIVE; URINE METHADONE SCREEN NEGATIVE; URINE PHENCYCLIDINE SCREEN NEGATIVE
[2019-04-30 11:56] VITALS: BP 132/68
--- NOTE | 2019-04-30 12:40 | ER Document Report ---
Entered by CODY DENISE SCRIBE 04/30/19 0726 Acting as scribe for:STORM CHINCHILLA MD ED General - General Chief Complaint: Medical Clearance Stated Complaint: DETOX Time Seen by Provider: 04/30/19 07:21 Primary Care Provider: JAIMEE SALINAS PA-C [Primary Care Provider] - Follow up as needed DAVID SAWYER JR, DO [ACTIVE PROVISIONAL STAFF] - Follow up as needed Information source: Patient, Friend Notes: This 38 year old female patient presents to the emergency department today with the purpose of obtaining medical clearance for detox. Patient was arrested for a DUI last night and fought the police resulting in pain in her left shoulder, left ribs, and tailbone. Patient states she drank vodka and tequila last night along with taking 3 different prescribed drugs. Patient states she has a migraine. TRAVEL OUTSIDE OF THE [place] IN LAST 30 DAYS: No - Related Data Allergies/Adverse Reactions: Sulfa (Sulfonamide Antibiotics) Allergy (Verified 02/08/18 14:10) Home Medications: hydroxyzine 50 mg q8h prn. duloxetine DR 60 mg q day. topamax 100 mg bid Past Medical History - General Information source: Patient, Friend - Social History Smoking Status: Current Every Day Smoker - vapes Frequency of alcohol use: Heavy Family History: CAD, Hypertension, Other - Anxiety and depression Patient has suicidal ideation: No Patient has homicidal ideation: No - Past Medical History Cardiac Medical History: Pulmonary Medical History: Neurological Medical History: Reports: Hx Migraine GI Medical History: Musculoskeletal Medical History: Psychiatric Medical History: Reports: Hx Depression Infectious Medical History: Past Surgical History: Reports: Hx Abdominal Surgery - umbilical hernias x2, Hx Breast Surgery - implant and explant, Hx Section - x5, Hx Orthopedic Surgery - rhinoplasty, Other - rhinoplasty Review of Systems - Review of Systems Constitutional: See HPI, Other - EtOH abuse EENT: No symptoms reported Cardiovascular: No symptoms reported Respiratory: No symptoms reported Gastrointestinal: No symptoms reported Genitourinary: No symptoms reported Female Genitourinary: No symptoms reported Musculoskeletal: See HPI, Other - Pain in left shoulder, left ribs, and tailbone. Skin: No symptoms reported Hematologic/Lymphatic: No symptoms reported Neurological/Psychological: See HPI, Headaches -: Yes All other systems reviewed and negative Physical Exam - Vital signs Vitals: Temp Pulse Resp BP Pulse Ox 98.2 F 102 H 20 115/72 100 04/30/19 05:34 04/30/19 05:34 04/30/19 05:34 04/30/19 05:34 04/30/19 05:34 - General General appearance: Appears well, Alert - HEENT Head: Normocephalic, Atraumatic Eyes: Normal Pupils: PERRL - Respiratory Respiratory status: No respiratory distress Chest status: Other - Tenderness with palpation of the left lateral ribs. No crepitus or deformity. Breath sounds: Normal - Cardiovascular Rhythm: Regular Heart sounds: Normal auscultation Murmur: No - Abdominal Inspection: Normal Distension: No distension Bowel sounds: Normal Tenderness: Nontender Organomegaly: No organomegaly - Back Back: Normal, Other - No tenderness with palpation on the coccyx. - Extremities General lower extremity: Normal inspection. No: Edema Shoulder: Tender - Left shoulder tenderness with palpation, Other - No crepitus. Full range of motion. - Neurological Neuro grossly intact: Yes Cognition: Normal Orientation: AAOx4 - Skin Skin Temperature: Warm Skin Moisture: Dry Skin Color: Normal Course - Re-evaluation Re-evalutation: 04/30/19 12:27 Patient complains of left shoulder pain left rib pain and does have a fracture of the distal end of the 11th left rib. There is no pneumothorax present. No other rib fractures noted. Patient also has a fracture of the tip of her left scapula. Again there is no pneumothorax of her chest. She will be placed in a sling and pain medications for this condition and to follow-up with orthopedist. Patient is medically cleared to go to detox for her alcohol acute ingestion. - Vital Signs Vital signs: Temp Pulse Resp BP Pulse Ox 98.1 F 98 16 132/68 H 99 04/30/19 11:54 04/30/19 11:54 04/30/19 11:54 04/30/19 11:54 04/30/19 11:54 - Laboratory Result Diagrams: 04/30/19 06:15 04/30/19 06:15 Laboratory results interpreted by me: 04/30/19 04/30/19 04/30/19 06:15 06:15 06:15 RDW 14.7 H Chloride 109 H Urine Protein Urine Ketones Urine Blood Salicylates < 1.0 L Acetaminophen < 10 L 04/30/19 06:20 RDW Chloride Urine Protein 30 H Urine Ketones TRACE H Urine Blood SMALL H Salicylates Acetaminophen Discharge - Discharge Clinical Impression: Admitted to alcohol detoxification center Acute alcohol intoxication Qualifiers: Complication of substance-induced condition: with unspecified complication Qualified Code(s): F10.929 - Alcohol use, unspecified with intoxication, unspecified Left rib fracture Qualifiers: Encounter type: initial encounter Rib fracture type: single rib Fracture type: closed Qualified Code(s): S22.32XA - Fracture of one rib, left side, initial encounter for closed fracture Closed left scapular fracture Qualifiers: Encounter type: initial encounter Scapula location: other part of scapula Qualified Code(s): S42.192A - Fracture of other part of scapula, left shoulder, initial encounter for closed fracture Condition: Stable Disposition: PSYCH HOSP/UNIT Additional Instructions: Currently shoulder Injury You have injured your shoulder. This usually results from stretching or tearing of the tendons during trauma. Time and protection are required in order to heal properly. Many injuries are quite disabling, and should be taken seriously. Initial treatment includes cold packs and a sling to rest the shoulder. The physician has assessed the seriousness of your injury, and has outlined a treatment plan. Understand that this treatment may change, depending on how you progress. If a re-examination was recommended, it is important that you follow up as instructed. Some shoulder injuries (such as partial tear of the rotator cuff) are only suspected after you've failed to improve. Call us if there's severe pain, numbness, or loss of function. Rib Injuries and Fractures You have been diagnosed as having either bruised or broken ribs. These two injuries are treated in the same way. It will usually take four to six weeks for these injured ribs to heal. Sometimes, rib belts or anesthetic injections of the chest wall help reduce the pain. If you are using a rib belt, you should cough or take a deep breath at least every hour or two to prevent lung complications. You should not engage in any strenuous physical activity until released by your physician. The usual rule is "if it hurts, don't do it." Rib fractures can lead to serious lung complications including lung collapse, hemorrhage, and pneumonia. You should call the physician or return at once if any of the following occur: (1) Fever or chills. (2) Persistent cough, coughing up blood, or shortness of breath. (3) Increasing pain. (4) Weakness, lightheadedness, or fainting. You have a closed shoulder fracture of the distal tip of the left scapula. Lungs are fully inflated. And there is only one rib fracture which is the distal tip of the 11th left rib. Sling for shoulder support has been applied. Medications for pain control has been written. Plan is to have you follow-up with orthopedic physician. Currently you have been medically cleared to enroll in alcohol detox center. Prescriptions: Oxycodone HCl/Acetaminophen [Percocet 5-325 mg Tablet] 1 - 2 tab PO Q4H PRN #15 tablet PRN Reason: Referrals: JAIMEE SALINAS PA-C [Primary Care Provider] - Follow up as needed DAVID SAWYER JR, [ACTIVE PROVISIONAL STAFF] - Follow up as needed I personally performed the services described in the documentation, reviewed and edited the documentation which was dictated to the scribe in my presence, and it accurately records my words and actions.
== END 2019-04-30 12:57 ==
LOC: ER 05:26
DX: S22.32XA Fracture of one rib, left side, initial encounter for closed fracture (principal); S42.192A Fracture of other part of scapula, left shoulder, initial encounter for closed fracture; F10.929 Alcohol use, unspecified with intoxication, unspecified; Y35.813A Legal intervention involving manhandling, suspect injured, initial encounter; F17.290 Nicotine dependence, other tobacco product, uncomplicated; Z88.2 Allergy status to sulfonamides
CPT/HCPCS: 36415; 80307 ×4; 83690; 85025; 81025; 80053; 81001; 72220; 71100; 73030; S0119; 99283

== ENCOUNTER 2019-05-04 18:28 | Emergency (ER) | payer BC ==
--- NOTE | 2019-05-04 20:31 | ER Document Report ---
ED Medical Screen (RME) - General Chief Complaint: Flank Pain Stated Complaint: FLANK/ABDOMINAL TRAUMA Time Seen by Provider: 05/04/19 20:24 Primary Care Provider: JAIMEE SALINAS PA-C [Primary Care Provider] - Follow up as needed Mode of Arrival: Ambulatory Information source: Patient Notes: 38-year-old female presented to ED for complaint of left flank rib and shoulder pain. She was seen in the emergency room on second and diagnosed with a fractured rib and a fractured scapula. She states 2 days ago her kidney and abdomen started hurting. She states that at the time she was admitted to [facility] for alcohol detox and her boss threw away her narcotic prescription and her sling because she cannot have them over at [facility]. She states that she is not able to hold her bladder for the last couple days.. She states she got out of [facility] yesterday. She states she was treated with Ultram 1 time while at [facility]. States she slept most of the time she was at [facility] I have greeted and performed a rapid initial assessment of this patient. A comprehensive ED assessment and evaluation of the patient, analysis of test results and completion of medical decision making process will be conducted by an additional ED providers. TRAVEL OUTSIDE OF THE [place] IN LAST 30 DAYS: No - Related Data Allergies/Adverse Reactions: Sulfa (Sulfonamide Antibiotics) Allergy (Verified 05/04/19 20:27) Past Medical History - Past Medical History Cardiac Medical History: Denies: Hx Coronary Artery Disease, Hx DVT, Hx Hypercholesterolemia, Hx Hypertension, Hx Pulmonary Embolism Pulmonary Medical History: Denies: Hx Asthma, Hx COPD Neurological Medical History: Reports: Hx Migraine. Denies: Hx Seizures Endocrine Medical History: Denies: Hx Diabetes Mellitus Type 1, Hx Diabetes Mellitus Type 2 Renal/ Medical History: Denies: Hx Peritoneal Dialysis GI Medical History: Denies: Hx Crohn's Disease, Hx Ulcerative Colitis Musculoskeltal Medical History: Denies Hx Arthritis, Denies Hx Gout Skin Medical History: Denies Hx Eczema, Denies Hx Psoriasis Psychiatric Medical History: Reports: Hx Depression Denies: Hx Bipolar Disorder Infectious Medical History: Past Surgical History: Reports: Hx Abdominal Surgery - umbilical hernias x2, Hx Breast Surgery - implant and explant, Hx Section - x5, Hx Orthopedic Surgery - rhinoplasty, Other - rhinoplasty Physical Exam - Vital signs Vitals: Temp Pulse Resp BP Pulse Ox 99.3 F 79 16 104/59 L 100 05/04/19 19:18 05/04/19 19:18 05/04/19 19:18 05/04/19 19:18 05/04/19 19:18 Course - Vital Signs Vital signs: Temp Pulse Resp BP Pulse Ox 99.3 F 79 16 104/59 L 100 05/04/19 19:18 05/04/19 19:18 05/04/19 19:18 05/04/19 19:18 05/04/19 19:18 Doctor's Discharge - Discharge Referrals: JAIMEE SALINAS PA-C [Primary Care Provider] - Follow up as needed
[2019-05-04 21:17] LABS: ABSOLUTE EOSINOPHILS # (AUTO) 0.1 10^3/uL (0.0-0.6); ABSOLUTE MONOCYTES (AUTO) 0.3 10^3/uL (0.1-1.4); ABSOLUTE NEUT (AUTO) 3.8 10^3/uL (1.7-8.2); BASOPHILS % (AUTO) 0.7 % (0-2); EOSINOPHILS % (AUTO) 1.8 % (0-6); HEMATOCRIT 35.4 % (36.0-47.0); HEMOGLOBIN 11.9 g/dL (12.0-15.5); LYMPHOCYTES % (AUTO) 32.2 % (13-45); MEAN CORPUSCULAR HEMOGLOBIN 28.8 pg (27.0-33.4); MEAN CORPUSCULAR HGB CONC 33.7 g/dL (32.0-36.0); MEAN CORPUSCULAR VOLUME 86 fl (80-97); MONOCYTES % (AUTO) 4.5 % (3-13); PLATELET COUNT 273 10^3/uL (150-450); RED BLOOD COUNT 4.14 10^6/uL (3.72-5.28); SEGMENTED NEUTROPHILS % (AUTO) 60.8 % (42-78); TOTAL CELLS COUNTED % (AUTO) 100 %; WHITE BLOOD COUNT 6.3 10^3/uL (4.0-10.5)
[2019-05-04 21:24] LABS: APPEARANCE,URINE SLIGHTLY-CLOUDY; BILIRUBIN,URINE NEGATIVE (NEGATIVE); COLOR,URINE YELLOW; GLUCOSE, URINE NEGATIVE (NEGATIVE); KETONES,URINE NEGATIVE (NEGATIVE); PROTEIN,URINE NEGATIVE (NEGATIVE); URINE SPECIFIC GRAVITY 1.016; UROBILINOGEN,URINE NEGATIVE mg/dL (<2.0)
[2019-05-04 21:31] LABS: ALKALINE PHOSPHATASE 53 U/L (38-126); ANION GAP 7 (5-19); ASPARTATE AMINO TRANSFERASE 21 U/L (14-36); BILIRUBIN,TOTAL 0.4 mg/dL (0.2-1.3); BLOOD UREA NITROGEN 21 mg/dL (7-20); CALCIUM 9.3 mg/dL (8.4-10.2); CARBON DIOXIDE 25 mmol/L (22-30); CHLORIDE 106 mmol/L (98-107); GLUCOSE 82 mg/dL (75-110); POTASSIUM 4.2 mmol/L (3.6-5.0); TOTAL PROTEIN 6.7 g/dL (6.3-8.2)
[2019-05-04] MEDS ORDERED: IBUPROFEN 600 MG TABLET PO ONE (21:49)
--- NOTE | 2019-05-04 22:03 | RADIOLOGY REPORT (SQ) ---
EXAM DESCRIPTION: [facility]: CT ABDOMEN PELVIS WITHOUT IV CONTRAST CLINICAL HISTORY: 38 years Female; Left flank pain after fall ; TECHNIQUE: CT of the abdomen and pelvis without contrast. All CT scans at this facility use dose modulation, iterative reconstruction, and/or weight based dosing when appropriate to reduce radiation dose to as low as reasonably achievable. COMPARISON: None. FINDINGS: Abdomen: Liver:No focal lesions. No intrahepatic ductal distention. Gallbladder:Nondistended Pancreas:Within normal limits Spleen:Within normal limits Right kidney: 5 mm calculus in the lower pole. No hydronephrosis. No definite ureteral calculi. There is a questionable 1-2 mm calcification in the right pelvis that could potentially be a nonobstructing right ureteral calculus. Left kidney:No hydronephrosis. No renal or ureteral calculi. No perinephric hematoma. Adrenal glands:Within normal limits Vascular structures:Within normal limits (although limited evaluation on noncontrast exam). Pelvis: Small bowel:No significant distention. Appendix:Within normal limits Colon:No distention or acute pericolonic edema. No free intraperitoneal fluid or air. Bones: No acute bone findings. Bladder: Unremarkable. Uterus is unremarkable. No pelvic soft tissue hematoma. No acute fractures. Note that evaluation of the bowel and solid organs is somewhat limited due to lack of intravenous and oral contrast. IMPRESSION: 1. No acute traumatic findings 2. Small right renal calculus and possible nonobstructing distal right ureteral calculus. No hydronephrosis. 3. No left renal calculi
--- NOTE | 2019-05-04 22:36 | ER Document Report ---
ED General - General Chief Complaint: Flank Pain Stated Complaint: FLANK/ABDOMINAL TRAUMA Time Seen by Provider: 05/04/19 20:24 Primary Care Provider: JAIMEE SALINAS PA-C [Primary Care Provider] - Follow up tomorrow Mode of Arrival: Ambulatory Notes: Patient is a 38-year-old female who per records was involved in a DUI on Wednesday. Patient comes in complaining of flank pain and concern for urgency. No blood in urine. States that she is taking [id number] medication without much relief. Of note, records are showing encounters for overdose intentionally and detox in the past. No abdominal pain, vomiting or diarrhea. No fever. TRAVEL OUTSIDE OF THE [place] IN LAST 30 DAYS: No - HPI Onset: Other Onset/Duration: Gradual Quality of pain: Achy, Dull Severity: Moderate Exacerbated by: Movement - Related Data Allergies/Adverse Reactions: Sulfa (Sulfonamide Antibiotics) Allergy (Verified 05/04/19 20:27) Home Medications: topamax Past Medical History - General Information source: Patient - Social History Smoking Status: Former Smoker Chew tobacco use (# tins/day): No Frequency of alcohol use: None Drug Abuse: None Family History: CAD, Hypertension, Other - Anxiety and depression Patient has suicidal ideation: No Patient has homicidal ideation: No - Past Medical History Cardiac Medical History: Denies: Hx Coronary Artery Disease, Hx DVT, Hx Hypercholesterolemia, Hx Hypertension, Hx Pulmonary Embolism Pulmonary Medical History: Denies: Hx Asthma, Hx COPD Neurological Medical History: Reports: Hx Migraine. Denies: Hx Seizures Endocrine Medical History: Denies: Hx Diabetes Mellitus Type 1, Hx Diabetes Mellitus Type 2 Renal/ Medical History: Denies: Hx Peritoneal Dialysis GI Medical History: Denies: Hx Crohn's Disease, Hx Ulcerative Colitis Musculoskeletal Medical History: Denies Hx Arthritis, Denies Hx Gout Skin Medical History: Denies Hx Eczema, Denies Hx Psoriasis Psychiatric Medical History: Reports: Hx Depression Denies: Hx Bipolar Disorder Infectious Medical History: Past Surgical History: Reports: Hx Abdominal Surgery - umbilical hernias x2, Hx Breast Surgery - implant and explant, Hx Section - x5, Hx Orthopedic Surgery - rhinoplasty, Other - rhinoplasty Review of Systems - Review of Systems -: Yes All other systems reviewed and negative Physical Exam - Vital signs Vitals: Temp Pulse Resp BP Pulse Ox 99.3 F 79 16 104/59 L 100 05/04/19 19:18 05/04/19 19:18 05/04/19 19:18 05/04/19 19:18 05/04/19 19:18 Interpretation: Normal - General General appearance: Appears well, Alert - HEENT Head: Normocephalic, Atraumatic Eyes: Normal Pupils: PERRL - Respiratory Respiratory status: No respiratory distress Chest status: Nontender Breath sounds: Normal Chest palpation: Normal - Cardiovascular Rhythm: Regular Heart sounds: Normal auscultation Murmur: No - Abdominal Inspection: Normal Distension: No distension Bowel sounds: Normal Tenderness: Nontender Organomegaly: No organomegaly - Back Back: Normal, CVA tenderness - L - Extremities General upper extremity: Normal inspection, Nontender, Normal color, Normal ROM, Normal temperature General lower extremity: Normal inspection, Nontender, Normal color, Normal ROM, Normal temperature, Normal weight bearing. No: Rogelio's sign - Neurological Neuro grossly intact: Yes Cognition: Normal Orientation: AAOx4 Karmen Coma Scale Eye Opening: Spontaneous [place] Coma Scale Verbal: Oriented Karmen Coma Scale Motor: Obeys Commands [place] Coma Scale Total: 15 Speech: Normal Motor strength normal: LUE, RUE, LLE, RLE Sensory: Normal - Psychological Associated symptoms: Normal affect, Normal mood - Skin Skin Temperature: Warm Skin Moisture: Dry Skin Color: Normal Course - Re-evaluation Re-evalutation: 05/04 Patient complaining of left flank pain and urgency. States that she has lost control of her bladder due to this. No midline back pain. Denies any IV drug abuse. No fever. No nausea vomiting or diarrhea. CT with no findings consistent with patient's symptoms. No evidence for septic stone. Unlikely UTI but patient is concerned about UTI so will initiate antibiotics and send urine culture. Have informed patient that due to her history of overdose and substance abuse as documented in records, she will not be able to receive any narcotic medication here or as a prescription. She is instructed to take [id number] medications as needed and will be given a prescription for a Lidoderm patch. - Vital Signs Vital signs: Temp Pulse Resp BP Pulse Ox 99.3 F 67 16 121/55 L 99 05/04/19 19:18 05/04/19 23:09 05/04/19 23:09 05/04/19 23:09 05/04/19 23:09 - Laboratory Result Diagrams: 05/04/19 20:51 05/04/19 20:51 Laboratory results interpreted by me: 05/04/19 05/04/19 05/04/19 20:51 20:51 20:51 Hgb 11.9 L Hct 35.4 L RDW 15.0 H BUN 21 H Leukocyte Esterase Rfl TRACE H - Diagnostic Test Radiology reviewed: Reports reviewed Discharge - Discharge Clinical Impression: Flank pain Condition: Stable Disposition: HOME, SELF-CARE Instructions: Flank Pain ([facility]) Prescriptions: Cephalexin Monohydrate [Keflex 500 mg Capsule] 500 mg PO TID 10 Days #30 capsule Lidocaine [Lidoderm 5% (700 mg) Transdermal Patch] 1 patch TP DAILY #14 adh..patch Referrals: JAIMEE SALINAS PA-C [Primary Care Provider] - Follow up tomorrow
[2019-05-04] MEDS ORDERED: CEPHALEXIN 500 MG CAPSULE PO ONE (22:45)
[2019-05-04] MEDS ORDERED: LIDOCAINE 5% (700 MG) TRANSDERMAL ADH..PATCH TP ONE (22:45)
[2019-05-04 23:10] VITALS: BP 121/55
== END 2019-05-04 23:10 | disposition home or self-care (01) ==
LOC: ER 18:28
DX: R10.9 Unspecified abdominal pain (principal); R39.15 Urgency of urination; R32 Unspecified urinary incontinence; G43.909 Migraine, unspecified, not intractable, without status migrainosus; Z79.899 Other long term (current) drug therapy; Z88.2 Allergy status to sulfonamides; Z87.891 Personal history of nicotine dependence; Z86.59 Personal history of other mental and behavioral disorders
CPT/HCPCS: 36415; 74176; 80053; 81001; 81025; 85025; 87086; 99284